=== PATIENT | male | born 1930 | race Caucasian/White ===

== ENCOUNTER 2016-11-20 08:14 | Day surgery (SDC) | payer MEDICARE, OTHER ==
[~2016-11-20] VITALS: Ht 193 cm; Wt 113.2 kg
[~2016-11-20 08:14] MED LIST: ASPI81TA82 PO; CODCAP PO; HYDR-2768 PO; LISI-363 PO; METO100T PO; NITR.4 SL; OMEG100010 PO; SYNT112T PO; TAB-TAB PO; ZOCO20TA PO
[2016-11-20] MEDS ORDERED: PROPOFOL 200 MG/20 ML AMP OTHER ONE (08:15)
[2016-11-20] MEDS ORDERED: PLAV75TA29 PO (08:52)
[2016-11-20] MEDS ORDERED: [UNRECOGNIZED DRUG - CODE] (08:52)
[2016-11-20] MEDS ORDERED: CODCAP9 (08:52)
[2016-11-20] MEDS ORDERED: LISI-515 PO (08:52)
[2016-11-20] MEDS ORDERED: ZOCO20TA PO (08:52)
[2016-11-20] MEDS ORDERED: NITR0.4S SL (08:52)
[2016-11-20] MEDS ORDERED: ASPI81TA5 PO (08:52)
[2016-11-20] MEDS ORDERED: HYDR-3801 PO (08:52)
[2016-11-20] MEDS ORDERED: METO25TA3 PO (08:52)
[2016-11-20] MEDS ORDERED: ALLO100T PO (08:52)
[2016-11-20] MEDS ORDERED: LEVO112T2 PO (08:52)
[2016-11-20 08:54] VITALS: BP 156/94; PULSE 79; RESP 16; TEMP 98.2; O2SAT 96
[2016-11-20] MEDS ORDERED: INSULIN HUMAN REGULAR 1,000 UNITS/10 ML VIAL SQ PRN (09:00)
[2016-11-20] MEDS ORDERED: LACTATED RINGER'S 1000 ML IV PRN (09:00)
[2016-11-20] MEDS ORDERED: CHLORHEXIDINE GLUCONATE 2 % 1 PACK (2 CLOTHS) TOPICAL PRN (09:00)
[2016-11-20] MEDS ORDERED: METOPROLOL TARTRATE 25 MG TAB PO PRN (09:00)
[2016-11-20] MEDS ORDERED: LORazepam 1 MG TAB SL SCH (09:00)
[2016-11-20] MEDS ORDERED: POVIDONE IODINE 5% (ANTISEPSIS KIT) 4 APPLICATIONS EACH NARE PRN (09:00)
[2016-11-20] MEDS ORDERED: SODIUM CHLORID 0.9% 500 ML IV PRN (09:00)
[2016-11-20] MEDS ORDERED: SODIUM CHLORID 0.9% 500 ML INJ 500 ML IV SCH (09:00)
[2016-11-20 09:11] LABS: AUTOMATED NEUTROPHIL # 3.2 TH/MM3 (1.8-7.7); BASOPHIL # 0.1 TH/MM3 (0-0.2); BASOPHIL % 1.2 % (0.0-2.0); EOSINOPHIL # 0.4 TH/MM3 (0-0.4); EOSINOPHIL % 7.5 % (0.0-4.0); HEMO FLAGS DIFF FINAL; LYMPH % 30.8 % (9.0-44.0); LYMPHOCYTE # 1.8 TH/MM3 (1.0-4.8); MEAN CELL VOLUME 89.2 FL (80.0-100.0); MEAN CORPUSCULAR HEMOGLOBIN 30.9 PG (27.0-34.0); MEAN CORPUSCULAR HGB CONC 34.6 % (32.0-36.0); MONO % 5.6 % (0.0-8.0); NEUT % 54.9 % (16.0-70.0); PLATELET COUNT 210 TH/MM3 (150-450); RED BLOOD COUNT 4.26 MIL/MM3 (4.50-5.90); RED CELL DISTRIBUTION WIDTH 13.9 % (11.6-17.2); WHITE BLOOD COUNT 5.9 TH/MM3 (4.0-11.0)
[2016-11-20 09:24] LABS: APTT (PATIENT) 28.9 SEC (24.3-30.1); PROTHROMBIN TIME - PATIENT 11.1 SEC (9.8-11.6)
[2016-11-20 09:39] LABS: BICARBONATE 25.3 MEQ/L (21.0-32.0); POTASSIUM 3.6 MEQ/L (3.5-5.1)
[2016-11-20] MEDS ORDERED: MIDAZOLAM HCL 2 MG/2 ML VIAL ONE (11:38)
[2016-11-20] MEDS ORDERED: ISOPROTERENOL HCL 1 MG/5 ML AMP ONE (11:38)
[2016-11-20] MEDS ORDERED: METOPROLOL TARTRATE 5 MG/5 ML VIAL ONE (12:55)
--- NOTE | 2016-11-20 13:08 | CATHPROC ---
[facility] HIS Report Study Information Study Number Admission Scheduled Start Study Start [id number] Nov 20 2016 8:14AM 11/20/2016 Nov 20 2016 11:15AM [place] Service Electrophysiology Study Admit Source Facility Department Other [facility] - Media Planner / Buyer Physician and Clinical Staff Initial Marisela Juarez Tractor Technician Parul Khan,RT(R) TECH2 Tractor Technician Evelyne Tucker,ECHO VASCULAR TECHNOLOGIST TECH2 Other Anesthesia, CUSTOMER SOLUTIONS SPECIALIST Recorder Delilah May,RIC Recorder Jacquelyn Barber,RIC Scrub Cynthia Milton,AJITH Procedures Performed Procedure Ablation Procedure Equipment Time Farmworkers Description Size Mfg Part Number Used/Scraped [id number] 11:59 BUNDLE-ST. SIVAKUMAR CATHETER, JSN, QUAD BUNDLE FR 5 *[id number] BUNDLE WIRE, HYDROSTEER 150CM [id number] 12:34 DAIG/ST. SIVAKUMAR MEDICAL 150CM Used ANGLED GLIDE *[id number] 11:21 [employer] INDUSTRIES PACK, CCL CUSTOM * Used *[id number] 11:21 [employer] PACER CARTY, LIMB * 2530 *[id number] Used [id number] 11:21 [employer] BLANKET,WARM AIR CCL * Used *[id number] 11:55 [employer] SIVAKUMAR MEDICAL CATHETER, JSN, QUAD FR 5 Used *[id number] 11:55 [employer]AKUM[employer] MEDICAL CATHETER, JSN, QUAD FR 5 Used *[id number] 12:36 [employer] S[employer]AKUM[employer] MEDICAL CATHETER, JSN, QUAD FR 5 Used *[id number] 423382 12:36 [employer] MED[employer] SHEATH, EPS, FR5 FAST CATH FR 5 Used *[id number] 934712 11:56 [employer] MED[employer] SHEATH, EPS, FR5 FAST CATH FR 5 Used *[id number] [id number] 11:55 [employer] MEDICAL SHEATH, EPS, FR5 FAST CATH FR 5 Used *[id number] [id number] 11:55 [employer] SHEATH, EPS, FR5 FAST CATH FR 5 Used *[id number] [id number] 11:55 [employer] MEDICAL SHEATH, EPS, FR5 FAST CATH FR 5 Used *[id number] 11:55 [employer] MEDICAL SHEATH, EPS, FR6 FAST CATH FR [address] [id number] Used 11:55 [employer] MED[employer] SHEATH, EPS, FR8 FAST CATH FR 8 [id number] Used Equipment Model, Serial, Lot Number and Expiration Data Description Model Number Serial Number Lot Number Expiration Date CHRIS SORIAEER 150CM [id number] 01-30-2018 ANGLED GLIDE History: Allergies Allergy Reaction No Known Allergies History: Risk Factors Hypertension Dyslipidemia Previous Heart Failure Yes Yes Yes Chronic Lung Disease Labs Hgb (g/dl) Hct (%) RBC (MIL/MM3) WBC (l/cumm) Platelets (thousands) 11.60-17.00 35.00-51.00 4.00-5.90 4.00-11.00 150.00-450.00 13.0 38 4.2 5.9 210 Glucose (mg/dl) BUN (mg/dl) Creatinine (mg/dl) BUN:Creatinine (1:x) 74.00-106.00 7.00-18.00 0.50-1.30 10.00-20.00 100 21 1.3 16.2 Na (meq/l) K (meq/l) 136.00-145.00 3.50-5.10 136 3.6 INR (PTT:PT) 0.90-1.10 1 Medication Medication Total Dose (Bolus/Oral) Medication Total Dosage/Unit 1% XYLOCAINE 20 mL METOPROLOL 5 units/hr Medications (Bolus/Oral) Medication Time Given Dosage/Unit Administered By Reason 1% XYLOCAINE 11/20/2016 12:22:00 PM 20 mL Marisela Rivas 20 mL 1% XYLOCAINE given in lab by Marisela Rivas in Right Groin via Subcutaneous. METOPROLOL 11/20/2016 12:58:00 PM 5 units/hr Anesthesia, CUSTOMER SOLUTIONS SPECIALIST As per physicians verbal order 5 units/hr METOPROLOL given in lab by Anesthesia, CUSTOMER SOLUTIONS SPECIALIST via Peripheral IV. Pump/Drip Flow = 0 ml/hr us ing [Solution Name]. Ordered by Marisela Rivas. Reason: As per physicians verbal order. Medication (Drip) Medication Time Given Dosage/Unit Concentration/Unit Diluent (ml) Solution ISUPREL 11/20/2016 12:45:07 PM 4 mcg/min 1 mg 250 NaCl .9 4 mcg/min ISUPREL given in lab by Marisela Rivas via Peripheral IV. Pump/Drip Flow = 60 ml/hr using Na Cl .9 with a concentration of 1 mg in 250 ml. Ordered by Marisela Rivas. Reason: As per physicians verbal order. Initial Case Assessment Cardiovascular HR Rhythm NIBP Chest Pain 78 sr 181/92 0 Edema Present Skin color Skin None Normal Warm Dry Circulatory - Right Pulses Dorsalis Pedis 2 Scale (0,1,2,3,4,d) Circulatory - Left Pulses Dorsalis Pedis 2 Scale (0,1,2,3,4,d) Circulatory - Lower Extremities Color Lower Right Normal Neurological State Oriented to time-place- Alert Moves all extremities person Respiration - General Respiration Rate SpO2 (%) (B/min) 20 98 Final Case Assessment Cardiovascular HR Rhythm NIBP Chest Pain 77 sr 111/59 0 Edema Present Skin color Skin None Normal Warm Dry Circulatory - Right Pulses Dorsalis Pedis 1 Scale (0,1,2,3,4,d) Circulatory - Left Pulses Dorsalis Pedis 1 Scale (0,1,2,3,4,d) Neurological State Oriented to time-place- Alert Moves all extremities person Respiration - General Respiration Rate SpO2 (%) (B/min) 18 96 Chronological Log Time Study Chronological Log 11:30:22 Patient arrived via Bed. 11:30:23 Patient Name, D.O.B, / Armband Verified By R.N. 11:30:24 Consent signed by the physician and the patient and verified by the Media Planner / Buyer staff. 11:30:24 Pre-op and post- op instructions given; patient acknowledges understanding of instructions. 11:30:26 Verbal Stimulation=2 Physical Stimulation=2 Airway=2 Respiration=2 TOTAL=8. (0=absent, 1=li mited, 2=present) 11:30:37 Patient has been NPO for More than 6Hrs. 11:30:37 Skin Breakdown- none per pt 11:30:38 Patient Warmer Placed on the Table. 11:30:39 Disposable Defibrillator Pads Placed On Patient. 11:30:43 A # 20 IV was noted in the Antecubital (left). Grade = 0 0.9ns kvo 11:30:43 A # 20 IV was noted in the Antecubital (right). Grade = 0 0.9ns kvo 11:30:48 Table restraints applied according to hospital policy 11:31:11 Verbal Stimulation=2 Physical Stimulation=2 Airway=2 Respiration=2 TOTAL=8. (0=absent, 1=li mited, 2=present) 11:32:18 Anesthesia at bedside. Assumes care of patient. Daljit 11:32:48 Cristi Prominences Protected 11:33:55 History and physical on the chart. Assessment: Initial Case, HR=78 BPM, Rhythm=sr, KOFX=461/92 mmhg, Chest Pain=0, Edema=None, Col or=Normal, Skin = Warm, Dry Right Pulses: Eric Ped=2 11:51:09 Left Pulses: Eric Ped=2 Lower Right Extremities: Color=Normal Neurological: State=Alert, Ox3, GRAYSON Respiration: Resp=20 B/min, SpO2=98 % 11:53:41 Bilateral groins prepped with 2% chlorhexidine, and with a 3 min. waiting time. 11:56:59 Reference ECG taken 12:08:51 MD paged 12:11:00 MD responded 12:18:23 MD arrived. Time Out. Correct patient, procedure, procedure equipment, site and side verified with physicia n present. Time 12:21:11 concurred by MD, individual staff and CUSTOMER SOLUTIONS SPECIALIST. Time Out #2 - Consents verified, patient in correct position, all results are labled and displa yed, safety precautions 12:21:45 taken, antibiotics administered. Time out concurred by MD, individual staff and CUSTOMER SOLUTIONS SPECIALIST in procedu re 12:21:58 Case Start 12:22:00 20 mL 1% XYLOCAINE given in lab by Marisela Rivas in Right Groin via Subcutaneous. 12:23:22 Vascular access was obtained in the Fem Vein (right). 12:23:51 Vascular access was obtained in the Fem Vein (right). 12:23:53 Vascular access was obtained in the Fem Vein (right). 12:23:55 Vascular access was obtained in the Fem Art (right). 12:24:00 A SHEATH, EPS, FR5 FAST CATH FR 5 was advanced into the Fem Art (right) using the Modified Seldinger technique. 12:24:04 A SHEATH, EPS, FR5 FAST CATH FR 5 was advanced into the Fem Vein (right) using the Modified Seldinger technique. 12:24:18 A SHEATH, EPS, FR5 FAST CATH FR 5 was advanced into the Fem Vein (right) using the Modified Seldinger technique. 12:24:21 A SHEATH, EPS, FR5 FAST CATH FR 5 was advanced into the Fem Vein (right) using the Modified Seldinger technique. A CATHETER, JSN, QUAD FR 5 was advanced vis Fem Art (right) and placed in the CS. Placement was visually 12:25:31 confirmed under fluoroscopy. A CATHETER, JSN, QUAD FR 5 was advanced vis Fem Vein (right) and placed in the HIS. Placement w as visually 12:25:42 confirmed under fluoroscopy. A CATHETER, JSN, QUAD BUNDLE FR 5 was advanced vis Fem Vein (right) and placed in the HRA. Plac ement was 12:25:50 visually confirmed under fluoroscopy. A CATHETER, JSN, QUAD FR 5 was advanced vis Fem Vein (right) and placed in the RVA. Placement w as visually 12:26:00 confirmed under fluoroscopy. 12:37:30 EPS in progress. 4 mcg/min ISUPREL given in lab by Marisela Rivas via Peripheral IV. Pump/Drip Flow = 60 ml/hr us ing NaCl .9 with a 12:45:07 concentration of 1 mg in 250 ml. Ordered by Marisela Rivas. Reason: As per physicians verbal ord er. 12:54:03 Isuprel off 5 units/hr METOPROLOL given in lab by HARRIS Avila via Peripheral IV. Pump/Drip Flow = 0 ml /hr using [Solution 12:58:00 Name]. Ordered by Marisela Rivas. Reason: As per physicians verbal order. 13:03:32 Catheter(s) removed without difficulty 13:03:36 Sheath(s) left in place, sutured, 0.9ns kvo connected and will be removed in Holding Area 13:04:12 Case End 13:04:15 Sterile dressing applied to site 13:04:16 No case complications noted. 13:04:18 Cine recording checked. 13:04:23 DOCU called. Spoke to Fritz 13:04:39 Bedside Report will be given. 13:04:53 EP Procedure was performed. 13:06:24 EP Procedure was performed. 13:06:30 Ablation procedure performed: SVT. ep study only Assessment: Final Case, HR=77 BPM, Rhythm=sr, RNPY=156/59 mmhg, Chest Pain=0, Edema=None, Marshall r=Normal, Skin = Warm, Dry Right Pulses: Eric Ped=1 13:06:47 Left Pulses: Eric Ped=1 Neurological: State=Alert, Ox3, GRAYSON Respiration: Resp=18 B/min, SpO2=96 % End Study - Contrast Media Used In Study Contrast Total Opened (mL) Total Used (mL) Total Wasted (mL) Unspecified 0 0 0 End Study - Maximum Contrast Load Max Contrast Load (mL) 435.3 End Study - Radiation Exposure Fluoro Time (minutes) 9.5 End Study - Patient Disposition Complications Transferred To Interventional Outcome No Telemetry Bed successful
[2016-11-20] MEDS ORDERED: LORazepam 2 MG/ML VIAL IV PRN (13:15)
[2016-11-20] MEDS ORDERED: ONDANSETRON HCL 4 MG/2 ML VIAL IV PRN (13:15)
[2016-11-20] MEDS ORDERED: SODIUM CHLOR 0.9% 250 ML INJ 250 ML IV PRN (13:15)
[2016-11-20] MEDS ORDERED: LIDOCAINE HCL 1% 50 ML VIAL INFIL PRN (13:15)
[2016-11-20] MEDS ORDERED: oxyCODONE/ACETAMINOPHEN 5 MG/325 MG TAB PO PRN ×2 (13:15)
[2016-11-20] MEDS ORDERED: ATROPINE SULFATE 1 MG/ML VIAL IV PRN (13:15)
[2016-11-20] MEDS ORDERED: METOCLOPRAMIDE HCL 10 MG/2 ML VIAL IV PRN (13:15)
[2016-11-20] MEDS ORDERED: BACITRACIN OINT 0.9 GM PKT TOP ONE (13:15)
--- NOTE | 2016-11-20 13:47 | EKG ---
Date Performed: 11/20/2016 Time Performed: 09:14:08 PTAGE: 86 years EKG: Sinus rhythm . Inferior/lateral ST changes are nonspecific Borderline ECG PREVIOUS TRACING : 09/06/2015 11.11 Compared to previous tracing, nonspecific ST changes are no w present. DOCTOR: Mando Bender Interpretating Date/Time 11/20/2016 13:46:07
[2016-11-20] MEDS ORDERED: hydrALAZINE HCL 50 MG TAB PO SCH (18:00)
[2016-11-20] MEDS ORDERED: METOPROLOL TARTRATE 25 MG TAB PO SCH (21:00)
[2016-11-21] MEDS ORDERED: LEVOTHYROXINE SODIUM 112 MCG TAB PO SCH (06:00)
[2016-11-21] MEDS ORDERED: CLOPIDOGREL 75 MG TAB PO SCH (09:00)
[2016-11-21] MEDS ORDERED: LISINOPRIL 20 MG TAB PO SCH (09:00)
[2016-11-21] MEDS ORDERED: PRAVASTATIN SOD 40 MG TAB PO SCH (09:00)
[2016-11-21] MEDS ORDERED: ALLOPURINOL 100 MG TAB PO SCH (09:00)
[2016-11-21] MEDS ORDERED: ASPIRIN EC 81 MG TABEC PO SCH (09:00)
--- NOTE | 2016-12-09 12:52 | MA ---
cc: MARILYN OLSON M.D. DATE: 11/19/2016. ELECTROPHYSIOLOGY STUDY INDICATIONS FOR THE PROCEDURE: Mr. Rosado is an 86-year-old gentleman with coronary artery disease, normal ejection fraction, episodes of supraventricular tachyarrhythmia with rates around 160 beats per minute for electrophysiology study and possible ablation. The risks, the nature and the benefits of the procedure were clearly stated to him. The risks include pneumothorax, cardiac perforation, stroke, need for open heart surgery and even . The patient understood and agreed to proceed. DESCRIPTION OF THE PROCEDURE IN DETAIL: After written informed consent was obtained, the patient was brought to the EP lab where he was prepped and draped in the usual sterile fashion. Conscious sedation was initiated and maintained throughout the procedure by the anesthesiologist. Once sedation was verified, the right and left inguinal areas were anesthetized with 2% Xylocaine. Using modified Seldinger technique, the left femoral vein was cannulated on three occasions and three guidewires were advanced. Over the wire, three 5-T[place] Hemaquets were advanced. Then the right femoral vein was cannulated on two occasions and two guidewires were advanced. Over the wire, a 6 and 11-[place] Hemaquets were advanced. Then under fluoroscopic guidance through the 5 and 6 [place] Hemaquets, a 4.5 [place] Eulalio quadripolar electrophysiology catheter was advanced and placed along the His, upper right atrium, coronary sinus and left ventricular apex. Basic intervals were measured. HV was slightly prolonged. At this point, atrial pacing protocol was performed. Atrial pacing protocol consisted of incremental atrial pacing as well as program stimulation cycle length and up to one extra stimuli delivered. Atrial pacing protocol was performed to the coronary sinus as well as upper right atrium. No tachyarrhythmia was induced. Then ventricular pacing protocol was performed. There was no VA conduction. Ventricular pacing protocol was performed. There was no VA conduction. The ventricular pacing protocol course of incremental ventricular pacing as well as program stimulation with 110 cycle length and up to two excess stimuli delivered. No tachyarrhythmia was induced. Then Isuprel infusion was initiated at four mikes. Atrial and ventricular pacing protocol was repeated again. No tachyarrhythmia was induced. Post Isuprel, no tachyarrhythmia was induced. At that point, the procedure was complete. All catheters were removed. The patient is going to be sent to the recovery room. No incident report. The patient tolerated the procedure. Blood loss minimal. I. . The patient was in sinus post procedure. The Electrocardiogram was unchanged. II. Basic interval: Base cycle length was around 800 milliseconds. AH was at 54 and HV around 70 milliseconds. III. Atrial pacing protocol. Wenckebach of the node was around 400 milliseconds. was 600/280 milliseconds. No tachyarrhythmia was induced. IV. Left ventricular pacing protocol: There was no VA at baseline on Isuprel and no tachyarrhythmia was induced. CONCLUSION: Negative electrophysiology study for supraventricular tachyarrhythmia, COMMENTS AND RECOMMENDATIONS: The patient is going to be transferred to the recovery room. He will be observed and can be discharged home when stable. MD APRIL Villalpando/ZACK /11:49 AM /12:04 PM
== END 2016-11-20 16:45 | disposition home or self-care (01) ==
LOC: HDOC 08:14 → HDIC 08:14 → HDOC 16:45
PROVIDERS: ATTEND Internal Medicine Interventional Cardiology
DX: I47.1 Supraventricular tachycardia (principal); I10 Essential (primary) hypertension; Z79.02 Long term (current) use of antithrombotics/antiplatelets
CPT/HCPCS: 00537; 80048; 85025; 85610; 85730; 86850; 86900; 86901; 93005; 93619; 93623; C1730; C1732; J2250; J3010